=== PATIENT | female | born 1970 | race Caucasian/White ===

== ENCOUNTER 2024-03-20 10:43 | Emergency (ER) | payer MEDICAID, SELFPAY ==
[2024-03-20 10:55] VITALS: BP 154/92; PULSE 87; RESP 20; TEMP 36.6; O2SAT 98
[2024-03-20 11:06] VITALS: BP 154/92; PULSE 87; RESP 16; TEMP 36.6; O2SAT 98
--- NOTE | 2024-03-20 11:21 | ED.GENADULT ---
HPI - General Adult General Chief complaint: Unspecified Stated complaint: Swelling in Legs and Feet Time Seen by Provider: 03/20/24 11:18 Source: patient, RN notes reviewed and old records reviewed Mode of arrival: ambulatory Limitations: no limitations History of Present Illness HPI narrative: 53 year old male presents to [facility] care with complaints of swelling to his lower legs and feet for the past 3 week and was seen at urgent care facility in [facility] and was placed on Amlodipine, Lasix and Potassium. Patient reports that he completed the Lasix and potassium but continues with the swelling. Patient reports that he was recently in penitentiary for 16 month and he was inactive and gained 50 pounds while in penitentiary. Patient reports that since he has been out of penitentiary he has been walking a mile to [facility] each way daily and up on his feet working and swelling has developed. He reports that he has ordered some compression stocking to wear but they have not come yet. Patient denies any shortness of breath, lungs clear to auscultation. 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 complaint: edema to lower leg and feet Onset (ago): week(s) (3) Location: left, right and lower extremity (pretibial and pedal edema) Severity: moderate Severity scale (1-10): 3 Quality: aching Treatments prior to arrival: other (Lasix and potassium for 5 days) Related Data Home Medications Medication Instructions Recorded Confirmed amlodipine 5 mg tablet 5 mg PO DAILY 03/20/24 03/20/24 Allergies Allergy/AdvReac Type Severity Reaction Status Date / Time No Known Allergies Allergy Verified 03/20/24 11:06 Review of Systems Review of Systems: CONSTITUTIONAL: Denies fever, chills, or sweats. EYES: Denies visual changes, redness, or discharge. ENT: Denies rhinorrhea, congestion, sore throat, or otalgia. CARDIOVASCULAR: Denies chest pain, palpitations, or edema. RESPIRATORY: Denies cough or dyspnea. GASTROINTESTINAL: Denies abdominal pain, nausea, vomiting, or diarrhea.denies any tightness to abdomen GENITOURINARY: Denies dysuria or hematuria. SKIN: Denies rash or itching. MUSCULOSKELETAL: Denies back pain, joint pain, states lower legs and feet achy NEUROLOGIC: Denies headache, numbness, or weakness. PSYCHIATRIC: Denies anxiety or depression. All systems reviewed & are unremarkable except as noted in HPI and below PMFSH Past Medical History Medical History (Updated 03/21/24 @ 09:14 by Penny Ortiz NP) Hypertension Surgical History Surgical History (Updated 03/21/24 @ 08:59 by Penny Ortiz NP) Hx of appendectomy Social History Social History (Updated 03/21/24 @ 09:01 by Penny Ortiz NP) Smoking status: Current every day smoker Tobacco type: e-cigarettes/vaping Alcohol intake: former Alcohol use details: none for 16 months Substance use: former Substance use type: methamphetamine Last use: clean for 16 months Gender identity (if verbalized by the patient): Male Comments At time of signature, agree with nursing past medical, surgical, social and family history. There is no relevant family history pertinent to the presenting complaint Exam Narrative: GENERAL: Well-appearing, well-nourished, and in no acute distress. HEAD: Normocephalic, atraumatic. EYES: PERRLA and EOMI. ENT: Nares clear, no rhinorrhea or epistaxis. Mucous membranes moist.TMs' normal, throat pink with no swelling NECK: Supple. no lymphadenopathy CHEST: Clear to auscultation. No respiratory distress. no cough noted.SAO2 98% on room air HEART: Regular rate and rhythm. No murmur heard. Normal peripheral pulses. ABDOMEN: Soft, nonten
== END 2024-03-20 12:02 | disposition home or self-care (01) ==
PROVIDERS: Emergency Provider Registered Nurse
DX: R60.9 Edema, unspecified (principal); I10 Essential (primary) hypertension; F17.290 Nicotine dependence, other tobacco product, uncomplicated
CPT/HCPCS: 99213; G0463